=== PATIENT | male | born 1935 | race African-American/Black ===

== ENCOUNTER 2016-05-31 10:27 | Emergency (ER) | payer MEDICARE, OTHER ==
[2016-05-31 12:17] LABS: #Eosinphils 0.1 thou/uL (0.0-0.7); #Lymphocytes 0.5 thou/uL (1.20-3.40); #Monocytes 0.2 thou/uL (0.11-0.59); #Neutrophils 1.6 thou/uL (1.40-6.50); %Basophils 0.7 % (0.0-1.0); %Eosinophils 5.9 % (0.0-10.0); %Lymphocytes 21.7 % (21.0-51.0); %Monocytes 7.9 % (0.0-10.0); Hematocrit 35.9 % (42.0-52.0); Mean Platelet Volume 7.7 fL (7.4-10.4); Red Blood Cell (RBC) Count 4.46 mill/uL (4.70-6.10); White Blood Cell (WBC) Count 2.5 thou/uL (4.8-10.8)
[2016-05-31 12:18] LABS: ALT (SGPT) 6 U/L (0-55); AST (SGOT) 11 U/L (5-34); Alkaline Phosphatase 36 U/L (40-150); Anion Gap 14 mmol/L (10-20); BUN (Urea Nitrogen) 30 mg/dL (8.4-25.7); Bilirubin, Total 0.4 mg/dL (0.2-1.2); Calc. Creatinine Clearance 0 mL/min (70-130); Calcium 9.3 mg/dL (7.8-10.44); Carbon Dioxide 17 mmol/L (23-31); Chloride 109 mmol/L (98-107); Estimated GFR-MDRD 22; Globulin 3.8 g/dL (2.4-3.5); Protein, Total 7.8 g/dL (5.8-8.1)
[2016-05-31 12:19] LABS: Anisocytosis SLIGHT = 6-15 cells (100X) (0-5/hpf)
[2016-05-31 12:25] LABS: Troponin I 0.016 ng/mL (< 0.028)
--- NOTE | 2016-05-31 12:43 | RAD ---
ACUTE ABDOMINAL SERIES 05/31/16' INDICATION: Abdominal pain. FINDINGS: There are calcified lymph nodes within the right hilar region. There is a calcified granuloma in the right lower lobe. No acute cardiopulmonary abnormality is evident. The bowel gas pattern is nonobstructed. There is enteric contrast in the stomach and small bowel. Th ere is a mild amount of retained stool within the colon. No suspicious calcifications are evident. T here are scattered vascular calcifications. IMPRESSION: 1. No acute abnormality. 2. Findings of prior granulomatous disease. POS: [facility]
--- NOTE | 2016-05-31 14:05 | CT ---
CT OF ABDOMEN AND PELVIS 05/31/2016 COMPARISON: None. HISTORY: Umbilical pain for a few days. History of renal insufficiency. TECHNIQUE: Serial axial CT imaging at 5-mm intervals from lung bases through pubic symphysis with oral contrast . Coronal reformatted imaging obtained. FINDINGS: The lack of IV contrast limits assessment of the viscera, bowel vascular structures, and for lymphad enopathy. A small pleural-based nodular density noted on the right on image 2 measuring 4 mm. This suggests a granuloma on coronal imaging. There is calcification in the region of the aortic valve. The spleen is enlarged, and there are spl enic granulomata; the spleen measures 16.9 cm in greatest AP dimension. No free intraperitoneal air. Hepatic granulomata noted. Limited assessment of the liver appears grossly unremarkable otherwise. The gallbladder, pancreas, and adrenal glands appear grossly unremarkable. There are numerous low-density lesions within both kidneys, some of which are too small to character ize. The larger lesions noted within both kidneys demonstrate CT attenuation consistent with disha us cysts. No nephrolithiasis or evidence of obstructive uropathy noted. There is urinary bladder wall thicken ing, nonspecific, which may be on the basis of inflammatory change or under-distention. The rectum is expanded and filled with stool suggesting possible fecal impaction. There is signific ant stool also seen within the sigmoid colon. No evidence for small or large bowel obstruction. The appendix is not well-visualized but no right lower quadrant inflammatory change is seen to sugge st the presence of acute appendicitis. There is brandt/hazy increased density within the central mesentery. Lymphadenopathy is noted within the mesentery adjacent to distal SMA and SMV branches, best seen on axial image 57, where enlarged lymph nodes measure up to 1.2 cm in short axis dimension. There are scattered atherosclerotic calcification of the abdominal aorta and its branches, not well- characterized without contrast media. No free fluid is seen in the abdomen or pelvis. The osseous structures demonstrate no discrete worr isome lytic or blastic bone lesion. IMPRESSION: 1. Hazy increased density noted throughout the mesenteric fat with associated central mesenteric lym phadenopathy. This could be reactive in nature. Alternative considerations include carcinoid tumor and lymphoma. Clinical correlation is required as is short-term follow-up imaging to document reso lution. 2. Significant stool within the distal colon including an expanded rectum which may signify fecal im paction. 3. Splenomegaly, nonspecific. 4. Multiple low-density renal lesions, likely representing cysts. 5. Urinary bladder wall thickening which could be pathologic or secondary to under-distention. Code T. POS: [facility]
--- NOTE | 2016-05-31 15:02 | ERRECORD ---
[facility] EMERGENCY RECORD HPI ABDOMINAL PAIN (23:18 AGRE) CHIEF COMPLAINT: Patient presents for evaluation of abdominal pain, Denies abdominal distention, Denies bloating. HISTORIAN: History provided by patient, History provided by patient's family, ABDOMINAL PAIN ACROSS THE LOWER AND MID ABDOMEN FOR 2 WEEKS GETTING WORST. NO NAUSEA OR VOMITING. NO URINARY SYMPTOMS. NO CHEST PAIN OR SOB. THE PAIN DOES NOT GO TO THE BACK. DENIES FEVER OR CHILLS. DENIES CONSTIPATION SAYING THAT HE HAS A BOWEL MOVEMENT EVERY OTHER DAY AND LAST ONE WAS YESTERDAY. THE PAIN IS WORST WITH EATING. NOTHING MAKES IT BETTER IT IS THERE CONSTANTLY. DESCRIBES IT AN ACHING, CRAMPY PAIN. LOCATION MALE: No localizing symptoms. QUALITY: Pain is dull in nature, described as aching, described as cramping. SEVERITY: Maximum severity of symptoms moderate, Currently symptoms are moderate. TIME COURSE: Gradual onset of symptoms. ASSOCIATED WITH: No associated chills, No associated constipation, No associated diarrhea, No associated fever, No associated hematuria, No associated loss of appetite, No associated melena, No associated nausea, No associated testicular pain, No associated trauma, No associated urinary tract infection signs or symptoms, No associated vomiting, Denies any other complaints. RELIEVED BY: Patient's condition relieved by nothing. EXACERBATED BY: Patient's condition exacerbated by food, Patient's condition exacerbated by movement. ROS (23:20 AGRE) CONSTITUTIONAL: Historian denies chills, denies fever, denies weakness. EYES: Historian denies eye redness, denies vision changes. ENT: Historian denies sore throat, denies stridor. CARDIOVASCULAR: Historian denies chest pain, denies diaphoresis. RESPIRATORY: Historian denies cough, denies shortness of breath. GI: Historian reports abdominal pain, denies appetite changes, denies constipation, denies diarrhea, denies flatulence, denies food intolerance, denies hematemesis, denies hematochezia, denies jaundice, denies melena, denies nausea, denies vomiting. MUSCULOSKELETAL: Historian denies back pain, denies neck pain. SKIN: Historian denies skin changes, denies skin lesions. NEUROLOGIC: Historian denies confusion, denies dizziness, denies focal weakness, denies headache. HEMO/LYMPHATIC: Normal hematologic/lymphatic system review, Historian denies petechiae. PSYCHIATRIC: Negative psychiatric review of systems, Historian denies anxiety. PAST MEDICAL HISTORY (10:45 GHIA) MEDICAL HISTORY: Notes: as lsited, Notes: glaucoma, Past medical history includes gastrointestinal disease, upper gastrointestinal bleed,includes history of &a-1R&a+25V*p+0X*[id number]*c202B*c15G*c2P*p-0X&a-25V&a+1R Name: Cl Barker : 1935 M80 MedRec: [id number] AcctNum: [id number] Prepared: TueMay 31, 2016 23:33 by Interface Page 1 of 4 pMD [facility] EMERGENCY RECORD hypertension,includes musculoskeletal disorder, gout, renal disease, insufficiency.,includes musculoskeletal disorder, dislocation to the left knee, history of hyperlipidemia, high cholesterol. MALE SURGICAL HISTORY: as listed, EGD, colonoscopy. PSYCHIATRIC HISTORY: No previous psychiatric history, No previous psychiatric history. SOCIAL HISTORY: Social History includes lives with , Patient denies alcohol use, Patient denies drug use, Patient has no smoking history, Patient has no smoking history, Patient denies alcohol use, Patient denies drug use. FAMILY HISTORY: Family history is non-contributory to this case. KNOWN ALLERGIES codeine (Unconfirmed): Reaction: itching No Known Drug Allergies CURRENT MEDICATIONS No recorded medications VITAL SIGNS VITAL SIGNS: BP: 170/79, Pulse: 64, Resp: 18, Pain: 5, O2 sat: 99 on RA, Time: 05/31/2016 10:45. (10:45 GHIA) BP: 160/87, Pulse: 63, Resp: 18, Pain: 5, O2 sat: 100 on Room Air, Time: 05/31/2016 11:30. (11:30 GHIA) BP: 178/104, Pulse: 76, Resp: 17, Pain: 5, O2 sat: 96 on Room Air, Time: 05/31/2016 12:30. (12:30 GHIA) BP: 171/97, Pulse: 69, Resp: 18, Pain: 5, O2 sat: 94 on RA, Time: 05/31/2016 12:49. (12:49 GHIA) BP: 195/92, Pulse: 82, Resp: 17, Pain: 0, O2 sat: 100 on RA, Time: 05/31/2016 14:04. (14:04 GHIA) PHYSICAL EXAM (23:21 AGRE) CONSTITUTIONAL: Vital signs reviewed, Patient afebrile, Respiratory rate normal, Patient appears non toxic, Patient appears pain free, Patient alert and oriented to person, place and time, NURSES NOTES REVIEWED. HEAD: Head exam included findings of head atraumatic, normocephalic. EYES: Eye exam included findings of eyelids normal to inspection, Conjunctiva normal, Sclera normal, Visual acuity: left eye CORNEAL SCARRING OF LEFT EYE. ENT: Ear exam normal, Nose exam normal, Mouth exam normal. NECK: Neck exam normal, Neck exam included findings of normal range of motion, no meningeal signs, no cervical adenopathy. RESPIRATORY CHEST: Respiratory and chest exam normal, Respiratory exam included findings of no respiratory distress, Breath sounds clear, No wheezing, No rales, No rhonchi, Breath sounds not diminished. &a-1R&a+25V*p+0X*[id number]*c202B*c15G*c2P*p-0X&a-25V&a+1R Name: Cl Barker : 1935 M80 MedRec: [id number] AcctNum: [id number] Prepared: TueMay 31, 2016 23:33 by Interface Page [address] [facility] EMERGENCY RECORD CARDIOVASCULAR: Cardiovascular exam included findings of heart rate regular rate and rhythm, Heart sounds normal, normal S1, normal S2, no murmurs, no rub, no gallop. ABDOMEN MALE: Abdominal exam included findings of abdomen tender, to the left lower quadrant, to the right lower quadrant, periumbilical, to the suprapubic region, moderate intensity, Bowel sounds normal, Liver normal, Spleen normal, no distension, no mass, no pulsatile masses, no peritoneal signs, no rigidity, no guarding, no rebound, no inguinal hernia, no femoral hernia, no umbilical hernia, no ventral hernia, ROTUND ABDOMEN. BACK: Back exam normal, Back exam included findings of normal inspection, range of motion normal. UPPER EXTREMITY: Upper extremity exam included findings of inspection normal, Range of motion normal. LOWER EXTREMITY: Lower extremity exam included findings of inspection normal, Range of motion normal. NEURO: Neuro exam normal, Neuro exam findings include patient oriented to person, place and time, Speech normal, Gait normal, Memory normal, Cranial nerves intact, no focal motor deficits. SKIN: Skin exam normal, Skin exam included findings of skin warm, dry, and normal in color. LYMPHATIC: Lymphatic exam normal, Lymphatic exam included findings of cervical nodes normal. PSYCHIATRIC: Psychiatric exam normal, Normal affect. EKG INTERPRETATION (15:55 AGRE) 12 LEAD EKG INTERPRETATION: 12 lead EKG interpreted by Emergency Department Physician at time of study, 12 lead EKG shows normal sinus rhythm, Rate (beats per minute): 60, Conduction normal, [place], left, Other findings include:, FLIPPED T WAVES LEADS III, AVF, TALL T WAVES V2 - 3, NON-SPECIFIC ST AND T CHANGES. RADIOLOGYINTERPRETATION STORYBOARD ARTIST: Preliminary review of x-rays by, Radiologist, CHANA. (12:40 AGRE) Preliminary review of CT scans by, Radiologist, PLEURAL NODULAR GRANULOMA, CALCIF AORTIC VALUE, SPLEEN ENLARGED, HEPATIC GRANULOMA, GALLBALDDER, PANCREAS AGRENAL GLAND, KIDNEY CYST NO OBSTRUCTION, FECAL IMPACTION. (13:52 AGRE) MEDICATION ADMINISTRATION SUMMARY Drug Name: sodium chloride 0.9 % intravenous, Dose Ordered: 1 L, Route: IV Fluid Infusion, Status: Given, Time: 12:49 05/31/2016, Detailed record available in Medication Service section. DOCTOR NOTES (23:27 AGRE) TEXT: VS REMAINED STABLE IN THE ED AND HE REMAINED ALERT &a-1R&a+25V*p+0X*[id number]*c202B*c15G*c2P*p-0X&a-25V&a+1R Name: Cl Barker : 1935 M80 MedRec: [id number] AcctNum: [id number] Prepared: TueMay 31, 2016 23:33 by Interface Page 3 of 4 pMD [facility] EMERGENCY RECORD AND ORIENTED. HE SPENT A SIGNIFICANT AMOUNT OF HIS TIME WALKING ABOUT IN HIS ROOM, TALKING WITH COMPANIONS, AND DID NOT HAVE ANY SIGNS OF DISCOMFORT. PATIENT HAD NOT GIVEN A URINE SPECIMEN BECAUSE WAS UNABLE TO DO SO INITIALLY THEN COULD NOT CONTINUE TO WAIT BECAUE HE HAD A PRESCHEDULED APPOINTMENT WITH [employer] AND COULD NOT MISS THE MEETING. DISCUSSED WITH HIM AND FAMILY FINDINGS ON EXAM, RESULTS OF HIS ED TEST, CONSTIPATION THE PROBABLE CAUSE OF HIS PAIN, STARTING A LAXATIVE AND ENEMA TONIGHT AND FOLLOW UP WITH HIS PHYSICIAN TOMORROW FOR REHCECK. THEY EXPRESSED UNDERSTANDING AND AGREEMENT. PATIENT STATUS: Patient has improved since arrival to emergency department. PATIENT PLAN: The patient will be discharged. DATA REVIEWED: Lab data reviewed, Xray data reviewed, Reviewed EKG, Old records obtained, Old records reviewed, Discussed with family. PROBLEM LIST No recorded problems DIAGNOSIS (13:55 AGRE) FINAL: PRIMARY: Constipation, ADDITIONAL: Abdominal Pain. PRESCRIPTION lactulose: SOLUTION, ORAL : 10 gram/15 mL : ORAL : Quantity: 30 Unit: g Route: ORAL Schedule: once a day (in the morning) Dispense: 90 Unit: mL May substitute. Refills: No Refills . (13:57 AGRE) NOTES: No Refills. (13:57 AGRE) Fleet Bisacodyl rectal: ENEMA (ML) : 10 mg/30 mL : RECTAL : Quantity: 30 Unit: mL Route: RECTAL Schedule: ONCE Dispense: 30 Unit: mL May substitute. Refills: No Refills . (13:59 AGRE) NOTES: USE THIS EVENING AFTER DINNER No Refills. (13:59 AGRE) DISPOSITION PATIENT: Disposition Type: Discharge, Disposition: *Discharge Home, Condition: Improved. (13:55 AGRE) Patient left the department. (14:11 VALE) Paiz: AGRE=MD Ulises, Luis Enrique COLLAZO=INEZ Herbert, Kristin &a-1R&a+25V*p+0X*[id number]*c202B*c15G*c2P*p-0X&a-25V&a+1R Name: Cl Barker : 1935 M80 MedRec: [id number] AcctNum: [id number] Prepared: TueMay 31, 2016 23:33 by Interface Page 4 of 4 pMD MTDD
--- NOTE | 2016-05-31 15:06 | PICIS ---
[facility] EMERGENCY RECORD TRIAGE (TueMay 31, 2016 10:40 GHIA) TRIAGE NOTES: Abd pain. (TueMay 31, 2016 10:40 GHIA) PATIENT: NAME: Cl Barker, AGE: 80, GENDER: male, : Tue1935, TIME OF GREET: TueMay 31, 2016 10:28, PREFERRED LANGUAGE: Wallisian, ETHNICITY: Not or , ECODE BILLING MAP: [facility], SSN: [id number], Zip Code: [address], KG WEIGHT: 72.57, PHONE: , , , PERSON ID: [id number]. (TueMay 31, 2016 10:40 GHIA) COMPLAINT: ABDOMINAL PAIN. (TueMay 31, 2016 10:40 GHIA) ADMISSION: URGENCY: 3 Urgent, ADMISSION SOURCE: Home, TRANSPORT: Walk-in, BED: TRIAGE. (TueMay 31, 2016 10:40 GHIA) ASSESSMENT: Assessment: Pt with abd pain around umbilicus, Symptoms began one week. (10:45 GHIA) PAIN: Patient complains of pain described as, aching, Location umbilicus area, Pain is constant. (10:45 GHIA) IMMUNIZATIONS: Flu vaccine not up to date, Tetanus not up to date, Pneumococcal vaccine not up to date. (10:45 GHIA) SIRS SCORING: Heart Rate 55-109 (0), Temp range 96.8-101.1 (0), respiratory rate 12-24 (0). (10:45 GHIA) TRIAGE SCREENING: Patient denies suicidal ideation, Patient denies presence of domestic violence. (10:45 GHIA) TREATMENTS IN PROGRESS: Treatments given Prehospital: no meds today. (10:45 GHIA) PROVIDERS: TRIAGE NURSE: Kristin Herbert RN. (TueMay 31, 2016 10:40 GHIA) PREVIOUS VISIT ALLERGIES: No Known Drug Allergies. (TueMay 31, 2016 10:40 GHIA) No Known Drug Allergies. (10:45 GHIA) KNOWN ALLERGIES codeine (Unconfirmed): Reaction: itching No Known Drug Allergies CURRENT MEDICATIONS No recorded medications VITAL SIGNS VITAL SIGNS: BP: 170/79, Pulse: 64, Resp: 18, Pain: 5, O2 sat: 99 on RA, Time: 05/31/2016 10:45. (10:45 GHIA) BP: 160/87, Pulse: 63, Resp: 18, Pain: 5, O2 sat: 100 on Room Air, Time: 05/31/2016 11:30. (11:30 GHIA) BP: 178/104, Pulse: 76, Resp: 17, Pain: 5, O2 sat: 96 on Room Air, Time: 05/31/2016 12:30. (12:30 GHIA) BP: 171/97, Pulse: 69, Resp: 18, Pain: 5, O2 sat: 94 on RA, Time: 05/31/2016 12:49. (12:49 GHIA) BP: 195/92, Pulse: 82, Resp: 17, Pain: 0, O2 sat: 100 on RA, Time: 05/31/2016 14:04. (14:04 GHIA) &a-1R&a+25V*p+0X*r6987B*c202B*c15G*c2P*p-0X&a-25V&a+1R Name: Cl Barker : 1935 M80 MedRec: [id number] AcctNum: [id number] Prepared: TueMay 31, 2016 23:34 by Interface Page 1 of 9 pMD [facility] EMERGENCY RECORD NURSING ASSESSMENT: HEAD-TO-TOE (10:45 GHIA) CONSTITUTIONAL: Patient arrives ambulatory, Gait steady, History obtained from patient, Patient appears comfortable, Patient cooperative, Patient alert, Oriented to person, place and time, Skin warm, Skin dry, Skin normal in color, Mucous membranes pink, Mucous membranes moist, Patient is well-groomed, Patient complains of Abd pain, Pt in room in bed in gown. Assess. Plan of care of pt in ER discussed. PAIN: aching pain, around umbilicus, Onset of pain one week, constant, on a scale 0-10 patient rates pain as 5. SKIN: Skin assessment findings include skin warm, Skin dry, Skin normal in color, Notes: intact. RESPIRATORY/CHEST: Respiratory assessment findings include respiratory effort easy. CARDIOVASCULAR: Cardiovascular assessment findings include heart rate normal. ABDOMEN: Abdomen assessment findings include abdomen symmetrical, no associated nausea, no associated vomiting, no associated diarrhea, Associated with constipation, Date of last bowel movement: yesterday. GENITOURINARY MALE: no associated urinary complaints. NOTES: Emotional support needed and given, Patient tolerated procedure well. VITAL SIGNS: BP: 170, / 79, Pulse: 64, Resp: 18, Pain: 5, O2 sat: 99, on: RA. NURSING PROCEDURE: DISCHARGE NOTE (14:04 GHIA) DISCHARGE: Patient discharged to home, ambulating without assistance, family driving, accompanied by //partner, Summary of Care printed/ provided, Transition record given to patient, Discharge instructions given to patient, Discharge instructions given to SO x 2 at bedside, Simple or moderate discharge teaching performed, Prescriptions given and instructions on side effects given, Above person(s) verbalized understanding of discharge instructions and follow-up care. BELONGINGS: Belongings remain with patient, Valuables remain with patient. SAFETY: Notes: Pt alert and appropriate; no c/o. Pt needing to leave quickly to get to social security office in [facility]. VITAL SIGNS: BP: 195, / 92, Pulse: 82, Resp: 17, Pain: 0, O2 sat: 100, on: RA. NURSING PROCEDURE: IV PATIENT IDENITIFIER: Patient actively involved in identification process, Patient's identity verified by patient stating name, Patient's identity verified by hospital ID bracelet. (11:46 IA) Patient actively involved in identification process, Patient's identity verified by patient stating name, Patient's identity verified by &a-1R&a+25V*p+0X*s8111O*c202B*c15G*c2P*p-0X&a-25V&a+1R Name: Cl Barker : 1935 M80 MedRec: [id number] AcctNum: [id number] Prepared: TueMay 31, 2016 23:34 by Interface Page 2 of 9 pMD [facility] EMERGENCY RECORD hospital ID bracelet. (14:04 IA) IV SITE 1: IV established, to the right hand, using a 20 gauge catheter, in one attempt, IV site prepped with chloraprep, Notes: unable to get lab. (11:46 GHIA) FOLLOW-UP SITE 1: After procedure, 2x3 ensure dressing applied, After procedure, no swelling at IV site, After procedure, no redness at IV site. (11:46 GHIA) IV discontinued, due to patient being discharged, catheter intact. (14:04 GHIA) NOTES: Emotional support needed and given, Patient tolerated procedure well. (11:46 GHIA) Patient tolerated procedure well. (14:04 GHIA) SAFETY: Side rails up, Cart/Stretcher in lowest position, Family at bedside, Call light within reach, Hospital ID band on. (11:46 GHIA) NURSING PROCEDURE: NURSE NOTES NURSES NOTES: Notes: Er Dr at bedside. (11:06 GHIA) Patient in no apparent distress, Notes: Er very busy. (11:20 GHIA) Notes: geophysical data technician at bedside and contrast given to pt with instructions. (11:50 GHIA) Notes: blood obtained by me from RAC and given to laboratory apparatus glass blower. Pt cooperative. (11:55 GHIA) Notes: Pt tolerating Po contrast. (12:01 GHIA) Patient in no apparent distress, Assistance offered to patient, Patient is awaiting results, Notes: Er Dr notifed of elevated Creatine and GFR. Pt alert and cheerful. (12:41 GHIA) Patient in no apparent distress, Assistance offered to patient, Patient is awaiting results, Notes: Er Dr notified pt has apt at 2 pm at social security office in [place] he and his must get to. (12:49 GHIA) Patient assisted to bathroom with steady gait. (13:15 GHIA) Notes: Pt to RAD. (13:30 GHIA) Notes: Pt back in room; no c/o. (13:41 GHIA) Patient in no apparent distress, Assistance offered to patient, Patient is awaiting disposition, Notes: Pt instructed to get dressed. SO x 2 at bedside. (13:55 GHIA) VITAL SIGNS: BP: 171, / 97, Pulse: 69, Resp: 18, Pain: 5, O2 sat: 94, on: RA. (12:49 GHIA) ORDER DETAILS Order Name: Cardiac Profile w/CKMB & Troponin - I, Status: Active, Time: 11:06 05/31/2016, User: HARI, - Ordered for: MD Montgomery Andrea, - Entered by: MD Montgomery Andrea - [facility] May 31, 2016 11:06, - Quantity: 1, Order Name: CBC with Differential, Status: Active, Time: 11:06 05/31/2016, User: HARI, &a-1R&a+25V*p+0X*g0824Q*c202B*c15G*c2P*p-0X&a-25V&a+1R Name: Cl Barker : 1935 M80 MedRec: [id number] AcctNum: [id number] Prepared: TueMay 31, 2016 23:34 by Interface Page 3 of 9 pMD [facility] EMERGENCY RECORD - Ordered for: MD Montgomery Andrea, - Entered by: MD Montgomery Andrea - TueMay 31, 2016 11:06, - Quantity: 1, Order Name: Comprehensive Metabolic Panel, Status: Active, Time: 11:06 05/31/2016, User: HARI, - Ordered for: MD Montgomery Andrea, - Entered by: MD Montgomery Andrea - TueMay 31, 2016 11:06, - Quantity: 1, Order Name: CT Abdomen Pelvis W Con, Status: Canceled, Time: 12:34 05/31/2016, User: System, - Ordered for: MD Montgomery Andrea, - Entered by: MD Montgomery Andrea - TueMay 31, 2016 11:06, - Quantity: 1, Order Name: EKG 12 Lead in Emergency Room, Status: Active, Time: 11:06 05/31/2016, User: HARI, - Ordered for: MD Montgomery Andrea, - Entered by: MD Montgomery Andrea - TueMay 31, 2016 11:06, - Quantity: 1, Order Name: SALINE LOCK, Status: Done, Time: 11:58 05/31/2016, User: VALE, - Ordered for: MD Montgomery Andrea, - Entered by: MD Montgomery Andrea - TueMay 31, 2016 11:06, - Quantity: 1, Order Name: Urinalysis w/ Rflx Microscopic, Status: Active, Time: 11:06 05/31/2016, User: HARI, - Ordered for: MD Montgomery Andrea, - Entered by: MD Montgomery Andrea - TueMay 31, 2016 11:06, - Quantity: 1, Order Name: XR Abdomen 2 View/1 View Cxr, Status: Active, Time: 11:06 05/31/2016, User: HARI, - Ordered for: MD Montgomery Andrea, - Entered by: MD Montgomery Andrea - TueMay 31, 2016 11:06, - Quantity: 1. MEDICATION ADMINISTRATION SUMMARY Drug Name: sodium chloride 0.9 % intravenous, Dose Ordered: 1 L, Route: IV Fluid Infusion, Status: Given, Time: 12:49 05/31/2016, Detailed record available in Medication Service section. MEDICATION SERVICE sodium chloride 0.9 % intravenous: Order: sodium chloride 0.9 % intravenous (0.9 % sodium chloride) - Dose: 1 L : IV Fluid Infusion Ordered by: Luis Enrique Montgomery MD Entered by: Luis Enrique Montgomery MD TueMay 31, 2016 11:06 , Acknowledged by: Kristin Herbert RN TueMay 31, 2016 12:44 Documented as given by: Kristin Herbert RN TueMay 31, 2016 12:49 Patient, Medication, Dose, Route and Time verified prior to administration. &a-1R&a+25V*p+0X*w8772Y*c202B*c15G*c2P*p-0X&a-25V&a+1R Name: Cl Barker : 1935 M80 MedRec: [id number] AcctNum: [id number] Prepared: TueMay 31, 2016 23:34 by Interface Page 4 of 9 pMD [facility] EMERGENCY RECORD Amount given: 1000ml, IV SITE #1 IV fluids established for hydration, IV SITE #1 1st bag hung, IV SITE #1 bolus of 1000 ml established, via primary tubing, IV SITE #1 on IV pump, Awake and alert- acceptable, Catheter placement confirmed via flush prior to administration, IV site without signs or symptoms of infiltration during medication administration, No swelling during administration, No drainage during administration, IV flushed after administration, Correct patient, time, route, dose and medication confirmed prior to administration, Patient advised of actions and side-effects prior to administration, Allergies confirmed and medications reviewed prior to administration, Emotional support needed and given, Patient tolerated procedure well, Patient in position of comfort, Side rails up, Cart in lowest position, Family at bedside, Call light in reach. : Follow Up : _IV SITE #1:_, IV fluid infusion discontinued, on TueMay 31, 2016 13:52, Total fluid hydration time IV site 1 1 hour, 5 minutes, ., Total amount infused: 1000ml, IV Line flushed after administration. (13:52 MSPE) HPI ABDOMINAL PAIN (23:18 AGRE) CHIEF COMPLAINT: Patient presents for evaluation of abdominal pain, Denies abdominal distention, Denies bloating. HISTORIAN: History provided by patient, History provided by patient's family, ABDOMINAL PAIN ACROSS THE LOWER AND MID ABDOMEN FOR 2 WEEKS GETTING WORST. NO NAUSEA OR VOMITING. NO URINARY SYMPTOMS. NO CHEST PAIN OR SOB. THE PAIN DOES NOT GO TO THE BACK. DENIES FEVER OR CHILLS. DENIES CONSTIPATION SAYING THAT HE HAS A BOWEL MOVEMENT EVERY OTHER DAY AND LAST ONE WAS YESTERDAY. THE PAIN IS WORST WITH EATING. NOTHING MAKES IT BETTER IT IS THERE CONSTANTLY. DESCRIBES IT AN ACHING, CRAMPY PAIN. LOCATION MALE: No localizing symptoms. QUALITY: Pain is dull in nature, described as aching, described as cramping. SEVERITY: Maximum severity of symptoms moderate, Currently symptoms are moderate. TIME COURSE: Gradual onset of symptoms. ASSOCIATED WITH: No associated chills, No associated constipation, No associated diarrhea, No associated fever, No associated hematuria, No associated loss of appetite, No associated melena, No associated nausea, No associated testicular pain, No associated trauma, No associated urinary tract infection signs or symptoms, No associated vomiting, Denies any other complaints. RELIEVED BY: Patient's condition relieved by nothing. EXACERBATED BY: Patient's condition exacerbated by food, Patient's condition exacerbated by movement. ROS (23:20 AGRE) CONSTITUTIONAL: Historian denies chills, denies fever, denies weakness. EYES: Historian denies eye redness, denies vision changes. ENT: Historian denies sore throat, denies stridor. CARDIOVASCULAR: Historian denies chest pain, denies diaphoresis. &a-1R&a+25V*p+0X*f6092I*c202B*c15G*c2P*p-0X&a-25V&a+1R Name: Cl Barker : 1935 M80 MedRec: [id number] AcctNum: [id number] Prepared: TueMay 31, 2016 23:34 by Interface Page 5 of 9 pMD [facility] EMERGENCY RECORD RESPIRATORY: Historian denies cough, denies shortness of breath. GI: Historian reports abdominal pain, denies appetite changes, denies constipation, denies diarrhea, denies flatulence, denies food intolerance, denies hematemesis, denies hematochezia, denies jaundice, denies melena, denies nausea, denies vomiting. MUSCULOSKELETAL: Historian denies back pain, denies neck pain. SKIN: Historian denies skin changes, denies skin lesions. NEUROLOGIC: Historian denies confusion, denies dizziness, denies focal weakness, denies headache. HEMO/LYMPHATIC: Normal hematologic/lymphatic system review, Historian denies petechiae. PSYCHIATRIC: Negative psychiatric review of systems, Historian denies anxiety. PAST MEDICAL HISTORY (10:45 GHIA) MEDICAL HISTORY: Notes: as lsited, Notes: glaucoma, Past medical history includes gastrointestinal disease, upper gastrointestinal bleed,includes history of hypertension,includes musculoskeletal disorder, gout, renal disease, insufficiency.,includes musculoskeletal disorder, dislocation to the left knee, history of hyperlipidemia, high cholesterol. MALE SURGICAL HISTORY: as listed, EGD, colonoscopy. PSYCHIATRIC HISTORY: No previous psychiatric history, No previous psychiatric history. SOCIAL HISTORY: Social History includes lives with , Patient denies alcohol use, Patient denies drug use, Patient has no smoking history, Patient has no smoking history, Patient denies alcohol use, Patient denies drug use. FAMILY HISTORY: Family history is non-contributory to this case. PHYSICAL EXAM (23:21 AGRE) CONSTITUTIONAL: Vital signs reviewed, Patient afebrile, Respiratory rate normal, Patient appears non toxic, Patient appears pain free, Patient alert and oriented to person, place and time, NURSES NOTES REVIEWED. HEAD: Head exam included findings of head atraumatic, normocephalic. EYES: Eye exam included findings of eyelids normal to inspection, Conjunctiva normal, Sclera normal, Visual acuity: left eye CORNEAL SCARRING OF LEFT EYE. ENT: Ear exam normal, Nose exam normal, Mouth exam normal. NECK: Neck exam normal, Neck exam included findings of normal range of motion, no meningeal signs, no cervical adenopathy. RESPIRATORY CHEST: Respiratory and chest exam normal, Respiratory exam included findings of no respiratory distress, Breath sounds clear, No wheezing, No rales, No rhonchi, Breath sounds not diminished. CARDIOVASCULAR: Cardiovascular exam included findings of heart &a-1R&a+25V*p+0X*m6583X*c202B*c15G*c2P*p-0X&a-25V&a+1R Name: Cl Barker : 1935 M80 MedRec: [id number] AcctNum: [id number] Prepared: TueMay 31, 2016 23:34 by Interface Page 6 of 9 pMD [facility] EMERGENCY RECORD rate regular rate and rhythm, Heart sounds normal, normal S1, normal S2, no murmurs, no rub, no gallop. ABDOMEN MALE: Abdominal exam included findings of abdomen tender, to the left lower quadrant, to the right lower quadrant, periumbilical, to the suprapubic region, moderate intensity, Bowel sounds normal, Liver normal, Spleen normal, no distension, no mass, no pulsatile masses, no peritoneal signs, no rigidity, no guarding, no rebound, no inguinal hernia, no femoral hernia, no umbilical hernia, no ventral hernia, ROTUND ABDOMEN. BACK: Back exam normal, Back exam included findings of normal inspection, range of motion normal. UPPER EXTREMITY: Upper extremity exam included findings of inspection normal, Range of motion normal. LOWER EXTREMITY: Lower extremity exam included findings of inspection normal, Range of motion normal. NEURO: Neuro exam normal, Neuro exam findings include patient oriented to person, place and time, Speech normal, Gait normal, Memory normal, Cranial nerves intact, no focal motor deficits. SKIN: Skin exam normal, Skin exam included findings of skin warm, dry, and normal in color. LYMPHATIC: Lymphatic exam normal, Lymphatic exam included findings of cervical nodes normal. PSYCHIATRIC: Psychiatric exam normal, Normal affect. LAB INTERPRETATION (23:25 AGRE) INTERPRETATION: CBC abnormal, White blood cell count decreased, Hemoglobin decreased, Hematocrit decreased, Chemistry abnormal, Chloride elevated, Glucose decreased, BUN elevated, Creatinine elevated, Bicarbonate decreased, Cardiac enzymes normal. EVENTS TRANSFER: Triage to Emergency Triage. (10:40 GHIA) Emergency Triage to Emergency Room -03. (10:50 GHIA) Removed from Emergency Emergency Room -03. (14:11 GHIA) RADIOLOGYINTERPRETATION [employer] NET OR TRAP: Preliminary review of x-rays by, CHANA Castle. (12:40 AGRE) Preliminary review of CT scans by, Radiologist, PLEURAL NODULAR GRANULOMA, CALCIF AORTIC VALUE, SPLEEN ENLARGED, HEPATIC GRANULOMA, GALLBALDDER, PANCREAS AGRENAL GLAND, KIDNEY CYST NO OBSTRUCTION, FECAL IMPACTION. (13:52 AGRE) EKG INTERPRETATION (15:55 AGRE) 12 LEAD EKG INTERPRETATION: 12 lead EKG interpreted by Emergency Department Physician at time of study, 12 lead EKG shows normal sinus rhythm, Rate (beats per minute): 60, Conduction normal, &a-1R&a+25V*p+0X*a3391P*c202B*c15G*c2P*p-0X&a-25V&a+1R Name: Cl Barker : 1935 M80 MedRec: [id number] AcctNum: [id number] Prepared: TueMay 31, 2016 23:34 by Interface Page 7 of 9 pMD [facility] EMERGENCY RECORD [place], left, Other findings include:, FLIPPED T WAVES LEADS III, AVF, TALL T WAVES V2 - 3, NON-SPECIFIC ST AND T CHANGES. O2SAT INTERPRETATION (23:23 AGRE) O2SAT: Continuous pulse oximetry, Oxygen saturation 98%, on room air, Oxygen saturation interpretation: Normal, No intervention required. DOCTOR NOTES (23:27 AGRE) TEXT: VS REMAINED STABLE IN THE ED AND HE REMAINED ALERT AND ORIENTED. HE SPENT A SIGNIFICANT AMOUNT OF HIS TIME WALKING ABOUT IN HIS ROOM, TALKING WITH COMPANIONS, AND DID NOT HAVE ANY SIGNS OF DISCOMFORT. PATIENT HAD NOT GIVEN A URINE SPECIMEN BECAUSE WAS UNABLE TO DO SO INITIALLY THEN COULD NOT CONTINUE TO WAIT [place] HE HAD A PRESCHEDULED APPOINTMENT WITH [employer] AND COULD NOT MISS THE MEETING. DISCUSSED WITH HIM AND FAMILY FINDINGS ON EXAM, RESULTS OF HIS ED TEST, CONSTIPATION THE PROBABLE CAUSE OF HIS PAIN, STARTING A LAXATIVE AND ENEMA TONIGHT AND FOLLOW UP WITH HIS PHYSICIAN TOMORROW FOR REHCECK. THEY EXPRESSED UNDERSTANDING AND AGREEMENT. PATIENT STATUS: Patient has improved since arrival to emergency department. PATIENT PLAN: The patient will be discharged. DATA REVIEWED: Lab data reviewed, Xray data reviewed, Reviewed EKG, Old records obtained, Old records reviewed, Discussed with family. PROBLEM LIST No recorded problems DIAGNOSIS (13:55 AGRE) FINAL: PRIMARY: Constipation, ADDITIONAL: Abdominal Pain. DISPOSITION PATIENT: Disposition Type: Discharge, Disposition: *Discharge Home, Condition: Improved. (13:55 AGRE) Patient left the department. (14:11 GHIA) INSTRUCTION (14:01 AGRE) DISCHARGE: CONSTIPATION (ADULT). SPECIAL: USE THE ENEMA TONIGHT AND ALSO TAKE A DOSE OF THE LACTULOSE. MAKE SURE TO DRINK LOTS OF FLUIDS. START TAKING METAMUCIL EVERY DAY. SEE YOUR PRIMARY CARE PHYSICAIN FOR RECHECK IN 2 DAYS. SEE A PHYSICIAN SOONER IF WORSENING OR IF NEW SYMPTOMS DEVELOP. PRESCRIPTION lactulose: SOLUTION, ORAL : 10 gram/15 mL : ORAL : Quantity: 30 Unit: g Route: ORAL Schedule: once a day (in the morning) &a-1R&a+25V*p+0X*k8290G*c202B*c15G*c2P*p-0X&a-25V&a+1R Name: Cl Barker : 1935 M80 MedRec: [id number] AcctNum: [id number] Prepared: TueMay 31, 2016 23:34 by Interface Page 8 of 9 pMD [facility] EMERGENCY RECORD Dispense: 90 Unit: mL May substitute. Refills: No Refills . (13:57 AGRE) NOTES: No Refills. (13:57 AGRE) Fleet Bisacodyl rectal: ENEMA (ML) : 10 mg/30 mL : RECTAL : Quantity: 30 Unit: mL Route: RECTAL Schedule: ONCE Dispense: 30 Unit: mL May substitute. Refills: No Refills . (13:59 AGRE) NOTES: USE THIS EVENING AFTER DINNER No Refills. (13:59 AGRE) IMAGING *SUPPLY CHARGE SHEET: Image captured from scanner. (14:46 GHIA) *DISCHARGE INSTRUCTIONS RECEIPT: Image captured from scanner. (14:46 IA) EKG: Image captured from scanner. (17:05 [facility]) ADMIN (23:32 AGRE) DIGITAL SIGNATURE: MD Montgomery Andrea. Paiz: AGRE=MD Montgomery Andrea GHIA=INEZ Herbert Geraldine MSPE=INEZ Barreto Marilyn &a-1R&a+25V*p+0X*m6076H*c202B*c15G*c2P*p-0X&a-25V&a+1R Name: Cl Barker : 1935 M80 MedRec: [id number] AcctNum: [id number] Prepared: TueMay 31, 2016 23:34 by Interface Page 9 of 9 pMD MTDD
== END 2016-05-31 14:04 | disposition home or self-care (01) ==
LOC: NAV ERS 10:27
DX: K59.00 Constipation, unspecified (principal); I10 Essential (primary) hypertension; E78.00 Pure hypercholesterolemia, unspecified; E78.5 Hyperlipidemia, unspecified; M10.9 Gout, unspecified
CPT/HCPCS: 74022; 74176; 80053; 82553; 84484; 85025; 93005; 96360

== ENCOUNTER 2016-06-04 14:00 | Emergency (ER) | payer MEDICARE, OTHER ==
[2016-06-04] MEDS ORDERED: Ondansetron HCl/PF 4 MG/2 ML Vial ONE (14:26)
[2016-06-04] MEDS ORDERED: Morphine Sulfate 2 MG/ML SYRINGE ONE (14:26)
[2016-06-04] MEDS ORDERED: Acetaminophen 325 MG TAB ONE (14:49)
[2016-06-04 15:08] LABS: Bilirubin Negative (Negative); Blood, Urine Moderate (Negative); Glucose, Urine (Dipstick) Negative (Negative); Ketone, Urine Negative (Negative); Nitrite Negative (Negative); Protein, Urine (Dipstick) > or equal to 300 mg/dL (Neg-Trace); Urobilinogen 0.2 mg/dL (0.2-1.0)
[2016-06-04 15:08] LABS: ALT (SGPT) 8 U/L (0-55); AST (SGOT) 16 U/L (5-34); Alkaline Phosphatase 44 U/L (40-150); Anion Gap 16 mmol/L (10-20); BUN (Urea Nitrogen) 34 mg/dL (8.4-25.7); Bilirubin, Total 0.6 mg/dL (0.2-1.2); Calc. Creatinine Clearance 0 mL/min (70-130); Carbon Dioxide 19 mmol/L (23-31); Chloride 106 mmol/L (98-107); Estimated GFR-MDRD 21; Globulin 4.5 g/dL (2.4-3.5); Lipase 111 U/L (8-78); Protein, Total 9.3 g/dL (5.8-8.1)
--- NOTE | 2016-06-04 15:12 | CT ---
CT ABDOMEN AND PELVIS NONCONTRAST: HISTORY: Bilateral flank pain. COMPARISON: 05/31/16. FINDINGS: Each renal collecting system and ureter are decompressed without stone evident. Urinary bladder is incompletely distended. Lack of contrast limits evaluation for other abnormalities. Calcified granulomata within the lymph nodes, lung bases, liver, and spleen are consistent with healed granulomatous disease. The spleen m easures up to 17.0 cm in length. Calcification is present within the arterial structures. Strandin g within the mesenteric fat is similar in appearance to the prior study. Cysts arise from the ezio x of each kidney. Dystrophic calcification is associated with the prostate gland. IMPRESSION: 1. No CT evidence of urinary tract obstruction or calcification. 2. Chronic-type findings appear stable. POS: MAHSA
[2016-06-04 15:19] LABS: RBC/HPF 0-3 HPF (0-3); Squamous Epithelial 0-3 HPF (0-3); WBC/HPF 0-3 HPF (0-3)
[2016-06-04 15:26] LABS: Hematocrit 44.8 % (42.0-52.0); Mean Platelet Volume 6.4 fL (7.4-10.4); Neutrophil 69 % (42-75); Red Blood Cell (RBC) Count 5.58 mill/uL (4.70-6.10); Stomatocytes MODERATE= 6-15 cells (100X) (0-1/hpf); Tear Drops SLIGHT = 2-5 cells (100X) (0-1/hpf)
[2016-06-04 15:27] LABS: White Blood Cell (WBC) Count 3.2 thou/uL (4.8-10.8)
--- NOTE | 2016-06-04 16:24 | ERRECORD ---
[facility] EMERGENCY RECORD HPI ABDOMINAL PAIN (14:24 JOHE) CHIEF COMPLAINT: Patient presents for evaluation of abdominal pain. HISTORIAN: History provided by patient, Pt. reports over a week of constant, crampy, periumbilical abdominal pain without radiation or migration. Pt. reports some foods make the pain worse, and it is worse when he sits up. Better when not eating. Patient denies associated symptoms, including N&V, F&C, CP, SOB, diarrhea, constipation, hematochezia, melena, and urinary symptoms. Reports he was seen here on Tuesday (05/31/16), and given medications for constipation which resolved his constipation. Last BM was yesterday and normal. No falls or trauma, no prior episodes of similar pain in the past. Reportedly had a normal EGD and colonoscopy about a year ago per patient. LOCATION MALE: Symptoms are localized, most severe periumbilical. QUALITY: Pain is dull in nature, described as cramping. SEVERITY: Maximum severity of symptoms moderate, Currently symptoms are moderate. TIME COURSE: Patient unable to describe onset of symptoms, Symptoms are constant, There has been no change in the patient's symptoms over time. ASSOCIATED WITH: No associated recent antibiotic use, No associated bright red blood per rectum, No associated chills, No associated constipation, No associated diarrhea, No associated fever, No associated flank pain, No associated genital discharge, No associated groin pain, No associated hematemesis, No associated hematuria, No associated loss of appetite, No associated melena, No associated nausea, No associated night sweats, No associated testicular pain, No associated trauma, No associated recent travel, No associated inability to tolerate oral intake, No associated urinary tract infection signs or symptoms, No associated vomiting, No associated weight change, Denies any other complaints. RELIEVED BY: Patient's condition relieved by not eating. EXACERBATED BY: Patient's condition exacerbated by food. RISK FACTORS MALE: Abdominal aortic aneurysm risk factors, no connective tissue disorders, no Annie Danlos syndrome, no first degree relative, no Marfan's syndrome, include age over 40 years, no history of abdominal aortic aneurysm, Coronary artery disease risk factors, no known coronary artery disease, no diabetes, include high cholesterol, include hypertension, no smoking. ROS (14:27 JOHE) CONSTITUTIONAL: Historian denies chills, denies fatigue, denies fever, denies malaise. ENT: Historian denies otalgia, denies rhinorrhea, denies sore throat. CARDIOVASCULAR: Historian denies chest pain, denies diaphoresis, denies syncope, denies palpitations. RESPIRATORY: Historian denies cough, denies shortness of breath, &a-1R&a+25V*p+0X*[id number]*c202B*c15G*c2P*p-0X&a-25V&a+1R Name: Cl Barker : 1935 M80 MedRec: [id number] AcctNum: [id number] Prepared: TueJun 04, 2016 16:34 by Interface Page 1 of 5 pMD [facility] EMERGENCY RECORD denies sputum, denies wheezing. GI: Historian reports abdominal pain, denies appetite changes, denies constipation, denies diarrhea, denies hematemesis, denies hematochezia, denies jaundice, denies melena, denies nausea, denies vomiting. GENITOURINARY MALE: Historian denies dysuria, denies hematuria, denies hesitancy, denies urinary frequency, denies urine output changes, denies urinary retention, denies urinary urgency. MUSCULOSKELETAL: Historian denies back pain, denies fall, denies myalgias, denies neck pain. SKIN: Historian denies rash, denies skin changes. NEUROLOGIC: Historian denies dizziness, denies focal weakness, denies gait changes, denies headache. NOTES: All systems reviewed, negative except as described above. PAST MEDICAL HISTORY (14:09 [facility]) MEDICAL HISTORY: Notes: glaucoma, Past medical history includes gastrointestinal disease, upper gastrointestinal bleed,includes history of hypertension,includes musculoskeletal disorder, gout, renal disease, insufficiency.,includes musculoskeletal disorder, dislocation to the left knee, history of hyperlipidemia, high cholesterol. MALE SURGICAL HISTORY: as listed, EGD, colonoscopy. PSYCHIATRIC HISTORY: No previous psychiatric history. SOCIAL HISTORY: Patient denies alcohol use, Patient denies drug use, Patient has no smoking history, Social History includes lives with , Patient denies alcohol use, Patient denies drug use, Patient has no smoking history, Patient has no smoking history, Patient denies alcohol use, Patient denies drug use. FAMILY HISTORY: Family history is non-contributory to this case. KNOWN ALLERGIES No Known Drug Allergies CURRENT MEDICATIONS No recorded medications VITAL SIGNS VITAL SIGNS: BP: 183/88, Pulse: 65, Resp: 18, Temp: 98.9 (Oral), Pain: 5, O2 sat: 100 on Room Air, Time: 06/04/2016 14:04. (14:04 [facility]) BP: 163/84, Pulse: 60, Resp: 16, Pain: 4, O2 sat: 98 on Room Air, Time: 06/04/2016 15:00. (15:00 [facility]) BP: 145/80, Pulse: 58, Resp: 19, Pain: 4, O2 sat: 100 on Room Air, Time: 06/04/2016 16:05. (16:05 [facility]) PHYSICAL EXAM (14:30 [facility]) CONSTITUTIONAL: Vital Signs Reviewed, Patient alert and oriented to person, place and time. HEAD: Head exam normal, Head exam included findings of head &a-1R&a+25V*p+0X*[id number]*c202B*c15G*c2P*p-0X&a-25V&a+1R Name: Cl Barker : 1935 M80 MedRec: [id number] AcctNum: [id number] Prepared: TueJun 04, 2016 16:34 by Interface Page 2 of 5 D [facility] EMERGENCY RECORD atraumatic, normocephalic. EYES: Right pupil round and reactive, left cornea and sclera hazy with nonreactive pupil (Hx. of glaucoma). ENT: Pharynx exam normal, not injected, no swelling, symmetrical, Uvula exam normal, midline, no edema, Tonsil exam normal, not enlarged, no exudates, Mouth exam normal, mucous membranes moist, no drooling, no lesions, no lacerations, no tongue elevation. NECK: Neck exam normal, Neck exam included findings of normal range of motion, Trachea midline, no carotid bruits. RESPIRATORY CHEST: Respiratory and chest exam normal, Respiratory exam included findings of no respiratory distress, Breath sounds clear, No wheezing, No rales, No rhonchi, Breath sounds not absent, Breath sounds not diminished, CTAB. CARDIOVASCULAR: Cardiovascular assessment normal, Cardiovascular exam included findings of heart rate regular rate and rhythm, Heart sounds normal, Carotids normal, Pedal pulses normal, RRR, no R/M/G. + pulses all ext., no bruits, no edema. ABDOMEN MALE: Bowel sounds normal, no pulsatile masses, no peritoneal signs, no rigidity, no guarding, no rebound, SOft, ND, mildly TTP periumbilical without guarding or rebound, + BS. Live palpable just below costal margin. No CVAT. BACK: Back exam normal, Back exam included findings of normal inspection, range of motion normal, no tenderness, no costovertebral angle tenderness. UPPER EXTREMITY: Upper extremity exam normal, Upper extremity exam included findings of inspection normal, Range of motion normal, Motor strength normal, Radial pulse normal. LOWER EXTREMITY: Lower extremity exam normal, Lower extremity exam included findings of inspection normal, Range of motion normal, Motor strength normal, Posterior tibial pulse normal, Pedal pulse normal. NEURO: Jan coma scale 15, Neuro exam findings include patient oriented to person, place and time, Speech normal, Gait normal, Cranial nerves intact, no focal motor deficits, no focal sensory deficits. SKIN: Skin exam normal, Skin exam included findings of skin warm, dry, and normal in color, no rash. EKG INTERPRETATION (14:51 JOHE) 12 LEAD EKG INTERPRETATION: 12 lead EKG interpreted by Emergency Department Physician at time of study, Compared with previous EKG from, 05/31/2016 15:02, Similar to old EKG, Conduction normal, T waves, [place], left, Other findings include:, left ventricular hypertrophy, TWI III, aVF, v6; EKG appears unchanged from 05/31/16. RADIOLOGYINTERPRETATION (16:26 JOHE) ABDOMEN: Healed granulomatous disease; splenomegaly; mesenteric fat stranding; cortical renal cysts. MAINTENANCE MAN: Preliminary review of CT scans by, Radiologist. &a-1R&a+25V*p+0X*[id number]*c202B*c15G*c2P*p-0X&a-25V&a+1R Name: Cl Barker : 1935 M80 MedRec: [id number] AcctNum: [id number] Prepared: TueJun 04, 2016 16:34 by Interface Page 3 of 5 pMD [facility] EMERGENCY RECORD MEDICATION ADMINISTRATION SUMMARY Drug Name: *Tylenol, Dose Ordered: 650 mg, Route: Oral, Status: Given, Time: 14:54 06/04/2016, Drug Name: Zofran intravenous, Dose Ordered: 4 mg, Route: IV Push, Status: Given, Time: 14:38 06/04/2016, *Additional information available in notes, Detailed record available in Medication Service section. DOCTOR NOTES RE-EVALUATION: The patient's condition has improved. (16:00 E) TEXT: Reviewed prior visit on 05/31/16, and results. CT showed possible fecal impaction/constipation, and hazy density of mesenteric fat with mesenteric GOLDY, possibly reactive, and short-term f/u recommended. (15:05 E) Pt. reports pain gone currently. Abd. soft, ND, mildly TTP periumbilical without guarding or rebound, + BS. Discussed results, and given worsening of pain with foods, and mildly elevated lipase, discussed that I cannot rule out pancreatitis, although lipase level is not very high. Offered hospital observation, but patient refuses, and wants to go home. Promises to f/u with his physician on Tuesday for re-assessment. As patient afebrile, with stable vitals and results compared to last visit, will d/c home. Discussed however, need for clear liquid diet for at least 24 hours and then until pain resolved, with slow advancement after that if tolerated to soft/bland diet, and need to return to ED immediately for any new or worsening symptoms. Patient and family verbalize understanding and agreed to f/u or return to ED. Will cover with antibiotics given mesenteric inflammation, and patient will need re-evaluation afterwards by GI to determine need for further studies. (16:00 E) DATA REVIEWED: Lab data reviewed, Xray data reviewed. (16:00 E) PROBLEM LIST No recorded problems DIAGNOSIS (16:03 E) FINAL: PRIMARY: periumbilical abdominal pain. PRESCRIPTION Flagyl: TABLET : 500 mg : ORAL : Quantity: 1 Unit: tab(s) Route: ORAL Schedule: 3 times a day Dispense: 21 Unit: tab(s) May substitute. Refills: No Refills . (16:03 E) NOTES: No Refills. (16:03 E) ciprofloxacin HCl oral: TABLET : 500 mg : ORAL : Quantity: 1 Unit: tab(s) Route: ORAL Schedule: once a day (in the morning) Dispense: 7 Unit: tab(s) May substitute. Refills: No Refills . (16:05 CARIDAD) &a-1R&a+25V*p+0X*[id number]*c202B*c15G*c2P*p-0X&a-25V&a+1R Name: MjCl : 1935 M80 MedRec: [id number] AcctNum: [id number] Prepared: TueJun 04, 2016 16:34 by Interface Page 4 of 5 pMD [facility] EMERGENCY RECORD NOTES: No Refills. (16:05 CARIDAD) DISPOSITION PATIENT: Disposition Type: Discharge, Disposition: *Discharge Home, Condition: Good. (16:03 CARIDAD) Patient left the department. (16:15 [facility]) Paiz: CARIDAD=MD Dipesh, Giovanni [facility]=INEZ Knight, Roselia &a-1R&a+25V*p+0X*[id number]*c202B*c15G*c2P*p-0X&a-25V&a+1R Name: Cl Barker : 1935 M80 MedRec: [id number] AcctNum: [id number] Prepared: TueJun 04, 2016 16:34 by Interface Page 5 of 5 pMD [facility]
--- NOTE | 2016-06-04 16:29 | PICIS ---
[facility] EMERGENCY RECORD TRIAGE (14:07 [facility]) TRIAGE NOTES: Pt reports being here Tuesday with abdominal pain and says he was put through a series of tests. Says his stomach won't stop hurting, but he "doesn't want to go through all that again." Family is in a hurry to leave. (14:07 [facility]) PATIENT: NAME: Cl Barker, AGE: 80, GENDER: male, : Tue1935, TIME OF GREET: TueJun 04, 2016 14:00, PREFERRED LANGUAGE: Mongolian, ETHNICITY: Not or , ECODE BILLING MAP: [facility], SSN: [id number], Zip Code: [address], PHONE: , , , PERSON ID: [id number]. (14:07 [facility]) KG WEIGHT: 74.8 (est.). (14:25 [facility]) COMPLAINT: ABDOMINAL PAIN. (14:07 [facility]) ADMISSION: URGENCY: 4 Non Urgent, ADMISSION SOURCE: Home, TRANSPORT: Walk-in, BED: TRIAGE. (14:07 [facility]) IMMUNIZATIONS: Flu vaccine not up to date, Tetanus immunization up to date, Pneumococcal vaccine up to date. (14:09 [facility]) SIRS SCORING: Heart Rate 55-109 (0), Temp range 96.8-101.1 (0), respiratory rate 12-24 (0), Mental Status altered: no (0). (14:09 [facility]) TRIAGE SCREENING: Patient denies suicidal ideation, Patient denies presence of domestic violence. (14:09 [facility]) PROVIDERS: TRIAGE NURSE: Roselia Knight RN. (14:07 [facility]) VITAL SIGNS: BP 183/88, Pulse 65, Resp 18, Temp 98.9, (Oral), Pain 5, O2 Sat 100, on Room Air, Time 06/04/2016 14:04. (14:04 [facility]) PREVIOUS VISIT ALLERGIES: No Known Drug Allergies. (14:07 [facility]) No Known Drug Allergies. (14:09 [facility]) KNOWN ALLERGIES No Known Drug Allergies CURRENT MEDICATIONS No recorded medications VITAL SIGNS VITAL SIGNS: BP: 183/88, Pulse: 65, Resp: 18, Temp: 98.9 (Oral), Pain: 5, O2 sat: 100 on Room Air, Time: 06/04/2016 14:04. (14:04 [facility]) BP: 163/84, Pulse: 60, Resp: 16, Pain: 4, O2 sat: 98 on Room Air, Time: 06/04/2016 15:00. (15:00 [facility]) BP: 145/80, Pulse: 58, Resp: 19, Pain: 4, O2 sat: 100 on Room Air, Time: 06/04/2016 16:05. (16:05 [facility]) NURSING ASSESSMENT: ABDOMEN (14:09 [facility]) CONSTITUTIONAL: Complex assessment performed, Patient arrives ambulatory, Gait steady, History obtained from patient, Patient appears comfortable, Patient cooperative, Patient alert, Oriented to person, place and time, Skin warm, Skin dry, Skin normal in color, Pt reporting severe abdominal pain for a week now. Also reporting bowel changes (constipation), but says his bowels have &a-1R&a+25V*p+0X*[id number]*c202B*c15G*c2P*p-0X&a-25V&a+1R Name: Cl Barker : 1935 M80 MedRec: [id number] AcctNum: [id number] Prepared: TueJun 04, 2016 16:40 by Interface Page 1 of 12 pMD [facility] EMERGENCY RECORD returned to normal now. Can't tolerate certain foods, says he "doesn't eat much" right now. Denies other symptoms at this time, VSS except for moderate HTN. PAIN: to the epigastric region, on a scale 0-10 patient rates pain as 5. ABDOMEN: Abdomen assessment findings include abdomen symmetrical, no associated nausea, no associated vomiting, no associated diarrhea, no associated constipation. GENITOURINARY MALE: no associated urinary complaints. SAFETY: Side rails up, Cart/Stretcher in lowest position, Family at bedside, Call light within reach, Hospital ID band on. NURSING ASSESSMENT: FALL RISK (14:51 [facility]) FALL RISK: Sensory deficits (1), Total score 1. NURSING ASSESSMENT: SKIN (14:50 [facility]) SKIN: Skin assessment findings include skin warm, Skin dry, Skin normal in color, Inspection findings include: No pressure ulcer to the shoulder, Inspection findings include no pressure ulcer to the elbow, Inspection findings include no pressure ulcers to the hip, Inspection findings include no pressure ulcer to the sacrum, Inspection findings include no pressure ulcer to the heel, Inspection findings include no pressure ulcer, Inspection findings include no pressure ulcer, Notes: Pt's skin is CDI with no deformities or lesions noted to posterior surface. GURPREET SCALE: (3) Sensory perception slightly limited, (4) Skin is rarely moist, (3) Patient walks occasionally, (3) Slightly limited mobility, (3) Adequate nutrition, (3) Patient has no apparent problem moving, Gurpreet Risk Total: 19. SAFETY: Side rails up, Cart/Stretcher in lowest position, Call light within reach, Hospital ID band on. NURSING PROCEDURE: BEDSIDE SIRS TESTING (15:04 [facility]) SCORES: Heart Rate 55-109 (0), Temp range 96.8-101.1 (0), respiratory rate 12-24 (0), Latest WBC 3-14.9 (0), Mental Status altered: no (0). NURSING PROCEDURE: MEDICAL IMAGING TECH (14:45 [facility]) MEDICAL IMAGING TECH: Patient placed on gill tender, Patient placed on non-invasive blood pressure monitor, Patient placed on continuous pulse oximetry. FOLLOW-UP: After procedure, alarms set and on, After procedure, patient tolerating monitoring. SAFETY: Side rails up, Cart/Stretcher in lowest position, Call light within reach, Hospital ID band on. NURSING PROCEDURE: DISCHARGE NOTE (16:14 [facility]) DISCHARGE: Patient discharged to home, ambulating without &a-1R&a+25V*p+0X*[id number]*c202B*c15G*c2P*p-0X&a-25V&a+1R Name: Cl Barker : 1935 M80 MedRec: [id number] AcctNum: [id number] Prepared: TueJun 04, 2016 16:40 by Interface Page 2 of 12 pMD [facility] EMERGENCY RECORD assistance, driving self, accompanied by //partner, Discharge instructions given to patient, Simple or moderate discharge teaching performed, by INEZ Veloz, Patient treated and evaluated by physician. BELONGINGS: Belongings and valuables with patient upon arrival to the Emergency Department include:, Belongings and valuables with patient at time of discharge include:. SAFETY: Side rails up, Cart/Stretcher in lowest position, Family at bedside, Call light within reach, Hospital ID band on. NURSING PROCEDURE: EKG CHART PATIENT IDENTIFIER: Patient actively involved in identification process. (14:37 [facility]) EKG: EKG indicated for abdominal pain, 12 lead EKG performed on the left chest. (14:37 [facility]) FOLLOW-UP: After procedure, EKG for interpretation given to Dr. Landon. (14:37 [facility]) SAFETY: Side rails up, Cart/Stretcher in lowest position, Family at bedside, Call light within reach, Hospital ID band on. (14:37 [facility]) NURSING PROCEDURE: IV PATIENT IDENITIFIER: Patient's identity verified by patient stating name, Patient's identity verified by hospital ID bracelet. (14:40 [facility]) IV SITE 1: IV established, to the left forearm, using a 20 gauge catheter, in one attempt, IV site prepped with chloraprep, Saline lock established, Flushed with normal saline (mls): 10, Labs drawn at time of placement, labeled in the presence of the patient and sent to lab, Notes: KAREN established by INEZ Veloz with use of IV catheter and start kit. SL established with no swelling, drainage, or redness. Secured with clear Tegaderm. (14:40 [facility]) FOLLOW-UP SITE 1: After procedure, no drainage at IV site, After procedure, no swelling at IV site, After procedure, no redness at IV site, IV discontinued, due to patient being discharged, catheter intact. (16:07 [facility]) SAFETY: Side rails up, Cart/Stretcher in lowest position, Family at bedside, Call light within reach, Hospital ID band on. (14:40 [facility]) NURSING PROCEDURE: TRANSPORT TO TESTS TRANSPORT TO TESTS: Transport indicated to facilitate diagnosis, Patient transported to CT scan, via wheelchair, Accompanied by x-ray waste handling technician, Transported with advanced life support care. (14:47 [facility]) FOLLOW-UP: After procedure, patient returned to emergency department. (14:54 [facility]) SAFETY: Side rails up, Cart/Stretcher in lowest position, Call light within reach, Hospital ID band on. (14:47 [facility]) NURSING PROCEDURE: URINE COLLECTION (14:55 [facility]) &a-1R&a+25V*p+0X*k9419H*c202B*c15G*c2P*p-0X&a-25V&a+1R Name: Cl Barker : 1935 M80 MedRec: [id number] AcctNum: [id number] Prepared: TueJun 04, 2016 16:40 by Interface Page 3 of 12 pMD [facility] EMERGENCY RECORD URINE COLLECTION MALE: Urine collected by void, output amount (mL) 50, urine yellow in color, and clear, Specimen labeled in the presence of the patient and sent to lab. SAFETY: Side rails up, Cart/Stretcher in lowest position, Call light within reach, Hospital ID band on. ORDER DETAILS Order Name: MEDICAL IMAGING TECH ED, Status: Done, Time: 14:45 06/04/2016, User: DAVEY, - Ordered for: MD Landon John, - Entered by: INEZ Knight, [place] - TueJun 04, 2016 14:45, - Quantity: 1, Order Name: CBC with Differential, Status: Active, Time: 14:21 06/04/2016, User: CARIDAD, - Ordered for: MD Landon John, - Entered by: MD Landon John - TueJun 04, 2016 14:21, - Quantity: 1, Order Name: Comprehensive Metabolic Panel, Status: Active, Time: 14:21 06/04/2016, User: CARIDAD, - Ordered for: MD Landon John, - Entered by: MD Landon John - TueJun 04, 2016 14:21, - Quantity: 1, Order Name: CT Abdomen Pelvis WO Con, Status: Active, Time: 14:23 06/04/2016, User: CARIDAD, - Ordered for: MD Landon John, - Entered by: MD Landon John - TueJun 04, 2016 14:23, - Quantity: 1, Order Name: Diet: Nothing by Mouth (NPO), Status: Done, Time: 14:23 06/04/2016, User: DAVEY, - Ordered for: MD Landon John, - Entered by: MD Landon John - TueJun 04, 2016 14:21, - Quantity: 1, Order Name: EKG 12 Lead in Emergency Room, Status: Active, Time: 14:24 06/04/2016, User: CARIDAD, - Ordered for: MD Landon John, - Entered by: MD Landon John - TueJun 04, 2016 14:24, - Quantity: 1, Order Name: Lipase, Status: Active, Time: 14:21 06/04/2016, User: CARIDAD, - Ordered for: MD Landon John, - Entered by: MD Landon John - TueJun 04, 2016 14:21, - Quantity: 1, Order Name: SALINE LOCK, Status: Done, Time: 14:40 06/04/2016, User: [facility], - Ordered for: MD Landon John, - Entered by: MD Landon John - TueJun 04, 2016 14:21, - Quantity: 1, Order Name: Urinalysis w/ Rflx Microscopic, Status: Active, Time: 14:21 06/04/2016, User: CARIDAD, - Ordered for: MD Landon John, &a-1R&a+25V*p+0X*a1970A*c202B*c15G*c2P*p-0X&a-25V&a+1R Name: Cl Barker : 1935 M80 MedRec: [id number] AcctNum: [id number] Prepared: TueJun 04, 2016 16:40 by Interface Page 4 of 12 pMD [facility] EMERGENCY RECORD - Entered by: MD Landon John - TueJun 04, 2016 14:21, - Quantity: 1. MEDICATION ADMINISTRATION SUMMARY Drug Name: *Tylenol, Dose Ordered: 650 mg, Route: Oral, Status: Given, Time: 14:54 06/04/2016, Drug Name: Zofran intravenous, Dose Ordered: 4 mg, Route: IV Push, Status: Given, Time: 14:38 06/04/2016, *Additional information available in notes, Detailed record available in Medication Service section. MEDICATION SERVICE Tylenol: Order: Tylenol (acetaminophen) - Dose: 650 mg : Oral Schedule: Now Notes: Read back and verified, Verbal Order Ordered by: Giovanni Landon MD Entered by: Roselia Knight RN TueJun 04, 2016 14:48 , Acknowledged by: Roselia Knight RN TueJun 04, 2016 14:48 Documented as given by: Roselia Knight RN TueJun 04, 2016 14:54 Patient, Medication, Dose, Route and Time verified prior to administration. Amount given: 650 mg, Site: Medication administered P.O., Correct patient, time, route, dose and medication confirmed prior to administration, Patient advised of actions and side-effects prior to administration, Allergies confirmed and medications reviewed prior to administration, Patient tolerated procedure well, Administered by INEZ Veloz, Patient in position of comfort, Side rails up, Cart in lowest position, Call light in reach. Zofran intravenous: Order: Zofran intravenous (ondansetron HCl) - Dose: 4 mg : IV Push Schedule: Now Ordered by: Giovanni Landon MD Entered by: Giovanni Landon MD TueJun 04, 2016 14:21 , Acknowledged by: Roselia Knight RN TueJun 04, 2016 14:23 Documented as given by: Roselia Knight RN TueJun 04, 2016 14:38 Patient, Medication, Dose, Route and Time verified prior to administration. Amount given: 4 mg, IV SITE #1 IVP, Catheter placement confirmed via flush prior to administration, IV site without signs or symptoms of infiltration during medication administration, No swelling during administration, No drainage during administration, IV flushed after administration, Correct patient, time, route, dose and medication confirmed prior to administration, Patient advised of actions and side-effects prior to administration, Allergies confirmed and medications reviewed prior to administration, Patient tolerated procedure well, Administered by INEZ Veloz, Patient in position of comfort, Side rails up, Cart in lowest position, Family at bedside, Call light in reach. &a-1R&a+25V*p+0X*j4767A*c202B*c15G*c2P*p-0X&a-25V&a+1R Name: Cl Barker : 1935 M80 MedRec: [id number] AcctNum: [id number] Prepared: TueJun 04, 2016 16:40 by Interface Page 5 of 12 pMD [facility] EMERGENCY RECORD HPI ABDOMINAL PAIN (14:24 [facility]) CHIEF COMPLAINT: Patient presents for evaluation of abdominal pain. HISTORIAN: History provided by patient, Pt. reports over a week of constant, crampy, periumbilical abdominal pain without radiation or migration. Pt. reports some foods make the pain worse, and it is worse when he sits up. Better when not eating. Patient denies associated symptoms, including N&V, F&C, CP, SOB, diarrhea, constipation, hematochezia, melena, and urinary symptoms. Reports he was seen here on Tuesday (05/31/16), and given medications for constipation which resolved his constipation. Last BM was yesterday and normal. No falls or trauma, no prior episodes of similar pain in the past. Reportedly had a normal EGD and colonoscopy about a year ago per patient. LOCATION MALE: Symptoms are localized, most severe periumbilical. QUALITY: Pain is dull in nature, described as cramping. SEVERITY: Maximum severity of symptoms moderate, Currently symptoms are moderate. TIME COURSE: Patient unable to describe onset of symptoms, Symptoms are constant, There has been no change in the patient's symptoms over time. ASSOCIATED WITH: No associated recent antibiotic use, No associated bright red blood per rectum, No associated chills, No associated constipation, No associated diarrhea, No associated fever, No associated flank pain, No associated genital discharge, No associated groin pain, No associated hematemesis, No associated hematuria, No associated loss of appetite, No associated melena, No associated nausea, No associated night sweats, No associated testicular pain, No associated trauma, No associated recent travel, No associated inability to tolerate oral intake, No associated urinary tract infection signs or symptoms, No associated vomiting, No associated weight change, Denies any other complaints. RELIEVED BY: Patient's condition relieved by not eating. EXACERBATED BY: Patient's condition exacerbated by food. RISK FACTORS MALE: Abdominal aortic aneurysm risk factors, no connective tissue disorders, no Annie Danlos syndrome, no first degree relative, no Marfan's syndrome, include age over 40 years, no history of abdominal aortic aneurysm, Coronary artery disease risk factors, no known coronary artery disease, no diabetes, include high cholesterol, include hypertension, no smoking. ROS (14:27 [facility]) CONSTITUTIONAL: Historian denies chills, denies fatigue, denies fever, denies malaise. ENT: Historian denies otalgia, denies rhinorrhea, denies sore throat. CARDIOVASCULAR: Historian denies chest pain, denies diaphoresis, denies syncope, denies palpitations. &a-1R&a+25V*p+0X*i9067K*c202B*c15G*c2P*p-0X&a-25V&a+1R Name: Cl Barker : 1935 M80 MedRec: [id number] AcctNum: [id number] Prepared: TueJun 04, 2016 16:40 by Interface Page 6 of 12 pMD [facility] EMERGENCY RECORD RESPIRATORY: Historian denies cough, denies shortness of breath, denies sputum, denies wheezing. GI: Historian reports abdominal pain, denies appetite changes, denies constipation, denies diarrhea, denies hematemesis, denies hematochezia, denies jaundice, denies melena, denies nausea, denies vomiting. GENITOURINARY MALE: Historian denies dysuria, denies hematuria, denies hesitancy, denies urinary frequency, denies urine output changes, denies urinary retention, denies urinary urgency. MUSCULOSKELETAL: Historian denies back pain, denies fall, denies myalgias, denies neck pain. SKIN: Historian denies rash, denies skin changes. NEUROLOGIC: Historian denies dizziness, denies focal weakness, denies gait changes, denies headache. NOTES: All systems reviewed, negative except as described above. PAST MEDICAL HISTORY (14:09 [facility]) MEDICAL HISTORY: Notes: glaucoma, Past medical history includes gastrointestinal disease, upper gastrointestinal bleed,includes history of hypertension,includes musculoskeletal disorder, gout, renal disease, insufficiency.,includes musculoskeletal disorder, dislocation to the left knee, history of hyperlipidemia, high cholesterol. MALE SURGICAL HISTORY: as listed, EGD, colonoscopy. PSYCHIATRIC HISTORY: No previous psychiatric history. SOCIAL HISTORY: Patient denies alcohol use, Patient denies drug use, Patient has no smoking history, Social History includes lives with , Patient denies alcohol use, Patient denies drug use, Patient has no smoking history, Patient has no smoking history, Patient denies alcohol use, Patient denies drug use. FAMILY HISTORY: Family history is non-contributory to this case. PHYSICAL EXAM (14:30 [facility]) CONSTITUTIONAL: Vital Signs Reviewed, Patient alert and oriented to person, place and time. HEAD: Head exam normal, Head exam included findings of head atraumatic, normocephalic. EYES: Right pupil round and reactive, left cornea and sclera hazy with nonreactive pupil (Hx. of glaucoma). ENT: Pharynx exam normal, not injected, no swelling, symmetrical, Uvula exam normal, midline, no edema, Tonsil exam normal, not enlarged, no exudates, Mouth exam normal, mucous membranes moist, no drooling, no lesions, no lacerations, no tongue elevation. NECK: Neck exam normal, Neck exam included findings of normal range of motion, Trachea midline, no carotid bruits. RESPIRATORY CHEST: Respiratory and chest exam normal, Respiratory exam included findings of no respiratory distress, Breath sounds clear, No wheezing, No rales, No rhonchi, Breath sounds not absent, Breath sounds not diminished, CTAB. &a-1R&a+25V*p+0X*h9336K*c202B*c15G*c2P*p-0X&a-25V&a+1R Name: Cl Barker : 1935 M80 MedRec: [id number] AcctNum: [id number] Prepared: TueJun 04, 2016 16:40 by Interface Page 7 of 12 pMD [facility] EMERGENCY RECORD CARDIOVASCULAR: Cardiovascular assessment normal, Cardiovascular exam included findings of heart rate regular rate and rhythm, Heart sounds normal, Carotids normal, Pedal pulses normal, RRR, no R/M/G. + pulses all ext., no bruits, no edema. ABDOMEN MALE: Bowel sounds normal, no pulsatile masses, no peritoneal signs, no rigidity, no guarding, no rebound, SOft, ND, mildly TTP periumbilical without guarding or rebound, + BS. Live palpable just below costal margin. No CVAT. BACK: Back exam normal, Back exam included findings of normal inspection, range of motion normal, no tenderness, no costovertebral angle tenderness. UPPER EXTREMITY: Upper extremity exam normal, Upper extremity exam included findings of inspection normal, Range of motion normal, Motor strength normal, Radial pulse normal. LOWER EXTREMITY: Lower extremity exam normal, Lower extremity exam included findings of inspection normal, Range of motion normal, Motor strength normal, Posterior tibial pulse normal, Pedal pulse normal. NEURO: [place] coma scale 15, Neuro exam findings include patient oriented to person, place and time, Speech normal, Gait normal, Cranial nerves intact, no focal motor deficits, no focal sensory deficits. SKIN: Skin exam normal, Skin exam included findings of skin warm, dry, and normal in color, no rash. LAB INTERPRETATION (16:25 [facility]) INTERPRETATION: I reviewed the lab results, All labs normal except as noted below, CBC abnormal, White blood cell count decreased, Chemistry abnormal, BUN elevated, Creatinine elevated, Bicarbonate decreased, Lipase abnormal, elevated, Urinalysis abnormal, positive for erythrocytes, positive for protein. EVENTS TRANSFER: Triage to Emergency Triage. (TueJun 04, 2016 14:07 [facility]) Emergency Triage to Emergency Room -03. (14:07 [facility]) Removed from Emergency Emergency Room -03. (16:15 [facility]) RADIOLOGYINTERPRETATION (16:26 [facility]) ABDOMEN: Healed granulomatous disease; splenomegaly; mesenteric fat stranding; cortical renal cysts. GOLD NIB GRINDER: Preliminary review of CT scans by, Radiologist. EKG INTERPRETATION (14:51 [facility]) 12 LEAD EKG INTERPRETATION: 12 lead EKG interpreted by Emergency Department Physician at time of study, Compared with previous EKG from, 05/31/2016 15:02, Similar to old EKG, Conduction normal, T waves, [place], left, Other findings include:, &a-1R&a+25V*p+0X*e3219X*c202B*c15G*c2P*p-0X&a-25V&a+1R Name: Cl Barker : 1935 M80 MedRec: [id number] AcctNum: [id number] Prepared: TueJun 04, 2016 16:40 by Interface Page 8 of 12 pMD [facility] EMERGENCY RECORD left ventricular hypertrophy, TWI III, aVF, v6; EKG appears unchanged from 05/31/16. DOCTOR NOTES RE-EVALUATION: The patient's condition has improved. (16:00 [facility]) TEXT: Reviewed prior visit on 05/31/16, and results. CT showed possible fecal impaction/constipation, and hazy density of mesenteric fat with mesenteric GOLDY, possibly reactive, and short-term f/u recommended. (15:05 [facility]) Pt. reports pain gone currently. Abd. soft, ND, mildly TTP periumbilical without guarding or rebound, + BS. Discussed results, and given worsening of pain with foods, and mildly elevated lipase, discussed that I cannot rule out pancreatitis, although lipase level is not very high. Offered hospital observation, but patient refuses, and wants to go home. Promises to f/u with his physician on Tuesday for re-assessment. As patient afebrile, with stable vitals and results compared to last visit, will d/c home. Discussed however, need for clear liquid diet for at least 24 hours and then until pain resolved, with slow advancement after that if tolerated to soft/bland diet, and need to return to ED immediately for any new or worsening symptoms. Patient and family verbalize understanding and agreed to f/u or return to ED. Will cover with antibiotics given mesenteric inflammation, and patient will need re-evaluation afterwards by GI to determine need for further studies. (16:00 [facility]) DATA REVIEWED: Lab data reviewed, Xray data reviewed. [facility] PROBLEM LIST No recorded problems DIAGNOSIS (16:03 [facility]) FINAL: PRIMARY: periumbilical abdominal pain. DISPOSITION PATIENT: Disposition Type: Discharge, Disposition: *Discharge Home, Condition: Good. (16:03 [facility]) Patient left the department. (16:15 [facility]) INSTRUCTION (16:06 [facility]) DISCHARGE: ABDOMINAL PAIN, UNKOWN CAUSE, (MALE), PANCREATITIS. FOLLOWUP: Walker [facility], Gastroenterology, [address] [place] [address], [phone], Follow up with Primary Care Physician in 2-3 days, Follow up with Specialist in 2-3 days. SPECIAL: Follow-up with your PCP. PRESCRIPTION Flagyl: TABLET : 500 mg : ORAL : Quantity: 1 Unit: tab(s) Route: ORAL Schedule: 3 times a day Dispense: 21 Unit: tab(s) May substitute. Refills: No Refills . (16:03 [facility]) &a-1R&a+25V*p+0X*[id number]*c202B*c15G*c2P*p-0X&a-25V&a+1R Name: Cl Barker : 1935 M80 MedRec: [id number] AcctNum: [id number] Prepared: TueJun 04, 2016 16:40 by Interface Page 9 of 12 pMD [facility] EMERGENCY RECORD NOTES: No Refills. (16:03 [facility]) ciprofloxacin HCl oral: TABLET : 500 mg : ORAL : Quantity: 1 Unit: tab(s) Route: ORAL Schedule: once a day (in the morning) Dispense: 7 Unit: tab(s) May substitute. Refills: No Refills . [facility]05 [facility] NOTES: No Refills. (16:05 [facility]) IMAGING *EKG: Image captured from scanner. (16:14 [facility]) *SUPPLY CHARGE SHEET: Image captured from scanner. (16:14 [facility]) *DISCHARGE INSTRUCTIONS RECEIPT: Image captured from scanner. (16:15 [facility]) DIR PG 2: Image captured from scanner. (16:15 [facility]) ADMIN (16:27 [facility]) DIGITAL SIGNATURE: MD Landon John. RESULTS RADIOLOGY: CT Abdomen Pelvis WO Con Observe DT: TueJun 04, 2016 14:28, ABDPELWO CT ABDOMEN AND PELVIS NONCONTRAST: HISTORY: Bilateral flank pain. COMPARISON: 05/31/16. FINDINGS: Each renal collecting system and ureter are decompressed without stone evident. Urinary bladder is incompletely distended. Lack of contrast limits evaluation for other abnormalities. Calcified granulomata within the lymph nodes, lung bases, liver, and spleen are consistent with healed granulomatous disease. The spleen m easures up to 17.0 cm in length. Calcification is present within the arterial structures. Strandin g within the mesenteric fat is similar in appearance to the prior study. Cysts arise from the ezio x of each kidney. Dystrophic calcification is associated with the prostate gland. IMPRESSION: 1. No CT evidence of urinary tract obstruction or calcification. 2. Chronic-type findings appear stable. POS: [facility] &a-1R&a+25V*p+0X*[id number]*c202B*c15G*c2P*p-0X&a-25V&a+1R Name: Cl Barker : 1935 M80 MedRec: [id number] AcctNum: [id number] Prepared: TueJun 04, 2016 16:40 by Interface Page 10 of 12 D [facility] EMERGENCY RECORD . (16:26 [facility]) LABORATORY: Lipase Collection DT: TueJun 04, 2016 14:51, *Lipase 111 - H U/L, Range (8-78). (15:16 [facility]) Comprehensive Metabolic Panel Collection DT: TueJun 04, 2016 14:51, Sodium 137 mmol/L, Range (136-145), Potassium 4.0 mmol/L, Range (3.5-5.1), Chloride 106 mmol/L, Range (98-107), *Carbon Dioxide 19 - L mmol/L, Range (23-31), Anion Gap 16 mmol/L, Range (10-20), *BUN (Urea Nitrogen) 34 - H mg/dL, Range (8.4-25.7), *Creatinine 3.42 - H mg/dL, Range (0.7-1.3), Estimated GFR-MDRD 21 , Reference Range for Estimated GFR: Greater than 90, mL/min/1.73 m2 NOTE: The MDRD equation has not been validated for use, with the elderly (over 70 years of age), women, patients with, serious comorbid condition or persons with extremes of body size, muscle, mass, or nutritional status. , Glucose 88 mg/dL, Range (83-110), Calcium 10.0 mg/dL, Range (7.8-10.44), Bilirubin, Total 0.6 mg/dL, Range (0.2-1.2), *Protein, Total 9.3 - H g/dL, Range (5.8-8.1), NOTE: Plasma values are generally 0.3 to 0.5 g/dL higher than serum values, due to the presence of fibrinogen. , Albumin 4.8 g/dL, Range (3.4-4.8), *Globulin 4.5 - H g/dL, Range (2.4-3.5), *Alb/Glob Ratio 1.1 - L g/dL, Range (1.2-2.2), Alkaline Phosphatase 44 U/L, Range (40-150), AST (SGOT) 16 U/L, Range (5-34), ALT (SGPT) 8 U/L, Range (0-55). (15:16 [facility] Urinalysis w/ Rflx Microscopic Collection DT: TueJun 04, 2016 15:05, Color Yellow , Range (Yellow), Clarity Clear , Range (Clear), Specific [place], Urine 1.025 , Range (1.005-1.030), pH, Urine 5.5 , Range (5.0-9.0), Leukocyte Negative , Range (Negative), Nitrite Negative , Range (Negative), *Protein, Urine (Dipstick) > or equal to 300 - mg/dL, * H , Range (Neg-Trace), Glucose, Urine (Dipstick) Negative mg/dL, Range (Negative), Ketone, Urine Negative mg/dL, Range (Negative), Urobilinogen 0.2 mg/dL, Range (0.2-1.0), Bilirubin Negative , Range (Negative), *Blood, Urine Moderate - H , Range (Negative). (15:18 [facility]) CBC with Differential Collection DT: TueJun 04, 2016 14:51, *White Blood Cell (WBC) Count 3.2 - L thou/uL, Range (4.8-10.8), Red Blood Cell (RBC) Count 5.58 mill/uL, Range (4.70-6.10), *Hemoglobin 13.5 - L g/dL, Range (14.0-18.0), Hematocrit 44.8 %, Range (42.0-52.0), &a-1R&a+25V*p+0X*[id number]*c202B*c15G*c2P*p-0X&a-25V&a+1R Name: Cl Barker : 1935 M80 MedRec: [id number] AcctNum: [id number] Prepared: TueJun 04, 2016 16:40 by Interface Page 11 of 12 pMD [facility] EMERGENCY RECORD Mean Corpuscular Volume 80.4 fl, Range (80.0-94.0), *Mean Corpuscular Hemoglobin 24.3 - L pg, Range (27.0-31.0), *Mean Corpuscular HGB CONC 30.2 - L g/dL, Range (32.0-36.0), *RBC Distribution Width 15.9 - H %, Range (11.5-14.5), Platelet Count 146 thou/uL, Range (130-400), *Mean Platelet Volume 6.4 - L fL, Range (7.4-10.4), Neutrophil 69 %, Range (42-75), Lymphocytes 24 %, Range (21-51), Monocytes 3 %, Range (0-10), Eosinophils 4 %, Range (0-10), Stomatocytes MODERATE= 6-15 cells (100X), Range (0-1/hpf), Tear Drops SLIGHT = 2-5 cells (100X), Range (0-1/hpf), PLT Morphology Comment Appears Adequate . (16:26 ) Urine Microscopic Collection DT: TueJun 04, 2016 15:05, RBC/HPF 0-3 HPF, Range (0-3), WBC/HPF 0-3 HPF, Range (0-3), Squamous Epithelial 0-3 HPF, Range (0-3). (16:26 ) Urinalysis w/ Rflx Microscopic Collection DT: TueJun 04, 2016 15:05, Color Yellow , Range (Yellow), Clarity Clear , Range (Clear), Specific [place]send, Urine 1.025 , Range (1.005-1.030), pH, Urine 5.5 , Range (5.0-9.0), Leukocyte Negative , Range (Negative), Nitrite Negative , Range (Negative), *Protein, Urine (Dipstick) > or equal to 300 - mg/dL, * H , Range (Neg-Trace), Glucose, Urine (Dipstick) Negative mg/dL, Range (Negative), Ketone, Urine Negative mg/dL, Range (Negative), Urobilinogen 0.2 mg/dL, Range (0.2-1.0), Bilirubin Negative , Range (Negative), *Blood, Urine Moderate - H , Range (Negative). (16:26 ) Paiz: PATRICK=INEZ Zhu, Anusha MCLEAN=MD Dipesh, Giovanni [facility]=INEZ Knight, Roselia &a-1R&a+25V*p+0X*[id number]*c202B*c15G*c2P*p-0X&a-25V&a+1R Name: Cl Barker Leonor : 1935 M80 MedRec: [id number] AcctNum: [id number] Prepared: TueJun 04, 2016 16:40 by Interface Page 12 of 12 pMD [facility]TDD
== END 2016-06-04 16:10 | disposition home or self-care (01) ==
LOC: NAV ERS 14:00
DX: R10.33 Periumbilical pain (principal); I10 Essential (primary) hypertension; E78.5 Hyperlipidemia, unspecified; E78.00 Pure hypercholesterolemia, unspecified
CPT/HCPCS: 74176; 80053; 81003; 81015; 83690; 85025; 93005; 96374; J2270; J2405

== ENCOUNTER 2017-02-02 13:57 | Emergency (ER) | payer MEDICARE, MEDICAID ==
[2017-02-02] MEDS ORDERED: Sodium Chloride 0.9% 1,000 ML ONE (14:39)
[2017-02-02 14:50] LABS: ALT (SGPT) 73 U/L (8-55); AST (SGOT) 76 U/L (5-34); Albumin 4.2 g/dL (3.4-4.8); Alkaline Phosphatase 147 U/L (40-150); Anion Gap 15 mmol/L (10-20); BUN (Urea Nitrogen) 29 mg/dL (8.4-25.7); Bilirubin, Total 0.8 mg/dL (0.2-1.2); Calc. Creatinine Clearance 0 mL/min (70-130); Calcium 9.5 mg/dL (7.8-10.44); Carbon Dioxide 18 mmol/L (23-31); Chloride 108 mmol/L (98-107); Estimated GFR-MDRD 26; Globulin 3.8 g/dL (2.4-3.5); Glucose 110 mg/dL (83-110); Lipase 107 U/L (8-78); Potassium 4.2 mmol/L (3.5-5.1); Sodium 137 mmol/L (136-145)
[2017-02-02 14:55] LABS: Bilirubin Negative (Negative); Blood, Urine Small (Negative); Clarity Clear (Clear); Glucose, Urine (Dipstick) Negative (Negative); Leukocyte Negative (Negative); Nitrite Negative (Negative); Protein, Urine (Dipstick) > or equal to 300 mg/dL (Neg-Trace); Urobilinogen 0.2 mg/dL (0.2-1.0); pH, Urine 5.5 (5.0-9.0)
[2017-02-02 15:14] LABS: Anisocytosis SLIGHT = 6-15 cells (100X) (0-5/hpf); Eosinophils 2 % (0-10); Hemoglobin 11.4 g/dL (14.0-18.0); Lymphocytes 17 % (21-51); MDiff Complete? YES; Mean Corpuscular HGB CONC 30.4 g/dL (32.0-36.0); Mean Corpuscular Hemoglobin 23.8 pg (27.0-31.0); Mean Corpuscular Volume 78.3 fl (80.0-94.0); Mean Platelet Volume 6.7 fL (7.4-10.4); Monocytes 1 % (0-10); Neutrophil 80 % (42-75); PLT Morphology Comment Appears Decreased; Platelet Count 84 thou/uL (130-400); Polychromasia SLIGHT = 2-3 cells (100X) (0-2/hpf); RBC Distribution Width 17.8 % (11.5-14.5); Red Blood Cell (RBC) Count 4.78 mill/uL (4.70-6.10); White Blood Cell (WBC) Count 2.7 thou/uL (4.8-10.8)
[2017-02-02 15:24] LABS: RBC/HPF 0-3 HPF (0-3); Specific Gravity, Urine 1.028 (1.005-1.030); Squamous Epithelial 0-3 HPF (0-3); WBC/HPF 0-3 HPF (0-3)
--- NOTE | 2017-02-02 15:30 | CT ---
NONCONTRAST CT OF THE ABDOMEN AND PELVIS: Date: 02/02/17 INDICATION: Abdominal pain. COMPARISON: Prior exam dated 06/04/16. FINDINGS: The renal hypodensities bilaterally suspicious for cysts are similar. There is stable splenomegaly. Stable calcified granuloma are seen involving the liver and spleen. There are small bilateral pleura l effusions, right greater than left, with bibasilar atelectasis. There is mild free fluid in the pelvis. The rectum and perirectal soft tissues are unremarkable. The re is a mild amount of retained stool within the colon. Unopacified large and small bowel are of nor mal caliber. The appendix is not definitely visualized. No definite acute osseous abnormality is evident. There is scattered degenerative and osteoarthritic change. IMPRESSION: 1. Stable splenomegaly. 2. Small bilateral pleural effusions, right greater than left. 3. Mild fluid within the pelvis is nonspecific. 4. Other chronic findings as above. POS: [facility]
[2017-02-02] MEDS ORDERED: Magnesium Citrate 300 ML BOT ONE (16:03)
== END 2017-02-02 16:14 | disposition home or self-care (01) ==
LOC: NAV ERS 13:57
DX: K59.00 Constipation, unspecified (principal); I12.0 Hypertensive chronic kidney disease with stage 5 chronic kidney disease or end stage renal disease; N18.9 Chronic kidney disease, unspecified; E86.0 Dehydration; E78.5 Hyperlipidemia, unspecified; M10.9 Gout, unspecified
CPT/HCPCS: 74176; 80053; 81003; 81015; 83605; 83690; 85025; 96360; J7050

== ENCOUNTER 2017-04-02 13:52 | Emergency (ER) | payer MEDICARE, MEDICAID ==
[2017-04-02 14:08] LABS: Bilirubin Large (Negative); Blood, Urine Trace (Negative); Clarity Slightly Cloudy (Clear); Glucose, Urine (Dipstick) Negative (Negative); Leukocyte Negative (Negative); Nitrite Negative (Negative); Protein, Urine (Dipstick) 100 mg/dL (Neg-Trace); pH, Urine 5.5 (5.0-9.0)
[2017-04-02 14:21] LABS: Bacteria/HPF Rare-Few HPF (None Seen); RBC/HPF 0-3 HPF (0-3); WBC/HPF 0-3 HPF (0-3)
[2017-04-02 15:19] LABS: INR-International Normal Ratio 1.3
[2017-04-02 15:23] LABS: Bilirubin, Direct Greater than 10.0 mg/dL (0.1-0.3); Lipase 126 U/L (8-78)
[2017-04-02 15:25] LABS: ALT (SGPT) 85 U/L (8-55); AST (SGOT) 73 U/L (5-34); Albumin 3.3 g/dL (3.4-4.8); Alkaline Phosphatase 284 U/L (40-150); BUN (Urea Nitrogen) 28 mg/dL (8.4-25.7); Calc. Creatinine Clearance 0 mL/min (70-130); Chloride 105 mmol/L (98-107); Estimated GFR-MDRD 28; Potassium 3.9 mmol/L (3.5-5.1); Protein, Total 7.3 g/dL (5.8-8.1); Sodium 134 mmol/L (136-145)
[2017-04-02 15:27] LABS: Hemoglobin 11.9 g/dL (14.0-18.0); Mean Corpuscular HGB CONC 30.6 g/dL (32.0-36.0); Mean Corpuscular Hemoglobin 26.1 pg (27.0-31.0); Mean Corpuscular Volume 85.5 fl (80.0-94.0); Platelet Count 133 thou/uL (130-400); RBC Distribution Width 19.3 % (11.5-14.5); Red Blood Cell (RBC) Count 4.54 mill/uL (4.70-6.10); White Blood Cell (WBC) Count 1.8 thou/uL (4.8-10.8)
[2017-04-02 15:39] LABS: Calcium 9.3 mg/dL (7.8-10.44); Carbon Dioxide 14 mmol/L (23-31); Glucose 85 mg/dL (83-110)
[2017-04-02 15:41] LABS: Eosinophils 9 % (0-10); Hypochromia MODERATE=16-30 cells (100X) (0-5/hpf); Lymphocytes 25 % (21-51); MDiff Complete? YES; Monocytes 4 % (0-10); Neutrophil 62 % (42-75); PLT Morphology Comment Appears Adequate; Poikilocytosis SLIGHT = 6-15 cells (100X) (0-5/hpf); Reflex for Review?? YES
== END 2017-04-02 16:36 | disposition short-term general hospital (02) ==
LOC: NAV ERS 13:52
DX: R17 Unspecified jaundice (principal); E78.5 Hyperlipidemia, unspecified; M10.9 Gout, unspecified; I10 Essential (primary) hypertension; K92.2 Gastrointestinal hemorrhage, unspecified
CPT/HCPCS: 80053; 81003; 81015; 82248; 83690; 85025; 85060; 85610; 85730; 99284